=== PATIENT | male | born 2000 | race Caucasian/White ===

== ENCOUNTER → 2021-04-13 | Outpatient (CLI) | payer BC | LOC: VAS 10:45 → RAD 11:00 → VAS 11:00 | DX: I27.20 Pulmonary hypertension, unspecified (principal) ==

== ENCOUNTER 2021-12-14 10:01 | Outpatient (RCR) | payer OTHER | END 2021-12-19 | disposition home or self-care (01) | LOC: OT | DX: M77.11 Lateral epicondylitis, right elbow (principal); M25.531 Pain in right wrist ==